=== PATIENT | female | born 1970 | race Caucasian/White ===

== ENCOUNTER 2016-10-30 09:11 | Emergency (ER) | payer SELFPAY ==
[~2016-10-30] VITALS: Ht 162.6 cm; Wt 57.0 kg
[~2016-10-30 09:11] MED LIST: CELE100C OR; IBUP400; PRED20 PO; ROBA750T3 PO
[2016-10-30 09:24] VITALS: BP 121/86; PULSE 96; RESP 16; TEMP 98.4; O2SAT 98
[2016-10-30] MEDS ORDERED: ACETAMINOPHEN/HYDROcodone 325 MG/5 MG TAB PO ONE (10:30)
[2016-10-30] MEDS ORDERED: IBUP-232 PO (11:30)
--- NOTE | 2016-10-30 11:30 | PD ---
HPI Chief Complaint: Fall Time Seen by Provider: 10:08 Travel History International Travel<30 days: No Contact w/Intl Traveler<30days: No Traveled to known affect area: No History of Present Illness HPI 45-year-old female came to the emergency room with history of fall from a ladder from about 8 feet high yesterday. Patient says she awkwardly landed on her right foot and then lost her balance and landed on her left shoulder. Didn' t come to the emergency room then and took some ibuprofen at home. Her last dose of ibuprofen was last night. However this morning when she woke up she was in significant pain in her ankle, left shoulder and her neck. Patient did not hit her head or loss consciousness. Vital signs are stable otherwise. She appears to be in distress. [facility] Past Medical History Narrative Medical List of her past medical, surgical, social and family history is reviewed from the nursing note. Diminished Hearing: No Reproductive: Yes (ENDOMETRIOSIS) Tetanus Vaccination: < 5 Years Influenza Vaccination: No ?: Not LMP: 09/26/2016 : 3 Para: 0 Miscarriage: 1 : 2 Ovarian Cysts: Yes Dilation and Curettage (D&C): Yes (2002) Past Surgical History Genitourinary Surgery: Yes (1977-"URETHRA") Gynecologic Surgery: Yes (D & C [place] 2003) Social History Alcohol Use: Yes (Few times a week) Tobacco Use: Yes (1 PPD) Substance Use: No Allergies-Medications (Allergen,Severity, Reaction): Coded Allergies: No Known Allergies (Verified , 10/30/16) Comments No known drug allergies. Reported Meds & Prescriptions Reported Meds & Active Scripts Active Ibuprofen 600 Mg Tab 600 Mg PO Q6H PRN Narrative Medication List of his home medications reviewed from the nursing note. Review of Systems Except as stated in HPI: all other systems reviewed are Neg Physical Exam Narrative GENERAL: Awake, alert, moderate distress, anxious SKIN: Focused skin assessment warm/dry. HEAD: Atraumatic. Normocephalic. EYES: Pupils equal and round. No scleral icterus. No injection or drainage. ENT: No nasal bleeding or discharge. Mucous membranes pink and moist. NECK: Trachea midline. No JVD. CARDIOVASCULAR: Regular rate and rhythm. No murmur appreciated. RESPIRATORY: No accessory muscle use. Clear to auscultation. Breath sounds equal bilaterally. GASTROINTESTINAL: Abdomen soft, non-tender, nondistended. Hepatic and splenic margins not palpable. MUSCULOSKELETAL: No obvious deformities. No clubbing. No cyanosis. No edema. Tenderness over the lateral malleolus of the right ankle. Tenderness over the ankle, the entire foot and also the knee. Tenderness over the left shoulder. Good range of motion however. NEUROLOGICAL: Awake and alert. No obvious cranial nerve deficits. Motor grossly within normal limits. Normal speech. PSYCHIATRIC: Appropriate mood and affect; insight and judgment normal. Data Data Last Documented VS Vital Signs Date Time Temp Pulse Resp B/P Pulse Ox O2 Delivery O2 Flow Rate FiO2 10/30/16 12:23 126/84 98 10/30/16 09:24 98.4 96 16 Orders Foot, Complete ([id number]) (10/30/16 ) Ankle, Complete (Evb8orw) (10/30/16 ) Knee, Complete (4vws) (10/30/16 ) Shoulder, Complete (>2vws) (10/30/16 ) Spine, Cervical Compl([id number]) (10/30/16 ) Acetamin-Hydrocod 325-5 Mg ([place] 5-325 (10/30/16 10:30) ^ Eder Bandage (10/30/16 12:01) MDM Medical Decision Making Medical Screen Exam Complete: Yes Emergency Medical Condition: Yes Medical Record Reviewed: Yes Differential Diagnosis Ankle fracture, shoulder fracture, sprain Narrative Course 11:28 AM awaiting for the x-rays to be read. Patient was medicated for pain. I looked at the x-rays myself and I did not see any acute injuries. Patient eventually will be discharged home. Procedures EKG Prior to Arrival: No Diagnosis Primary Impression: Fall from ladder Qualified Code: W11.XXXA - Fall from ladder, initial encounter Additional Impressions: Ankle strain Qualified Code: S96.911A - Ankle strain, right, initial encounter Shoulder strain Qualified Code: S46.912A - Shoulder strain, left, initial encounter Referrals: Primary Care Physician Additional Instructions: Keep the ankle wrapped in Eder wrap. Keep the leg elevated above the heart level. Apply ice compress. Take Motrin/ibuprofen/Advil for the pain. Follow- up with your primary care. Return to the ER if the condition worsens or any other new concerns. Med/Other Pt SpecificInfo: Prescription(s) given Scripts Ibuprofen 600 Mg [id number] Mg PO Q6H PRN (Pain/Inflammation) #40 TAB Ref 0 Prov:Tyler Maguire MD 10/30/16 Disposition: 01 DISCHARGE HOME Condition: Stable Tyler Maguire MD Oct 30, 2016 11:30
--- NOTE | 2016-10-30 11:45 | RADRPT ---
EXAM DATE/TIME: 10/30/2016 10:38 [facility] COMPARISON: No previous studies available for comparison. INDICATIONS : Right ankle pain post fall from ladder yesterday. MEDICAL HISTORY : Endometriosis. Ovarian cyst. Smoker. SURGICAL HISTORY : D&C. Urethral surgery. Left 5th finger. ENCOUNTER: Initial ACUITY: 1 day PAIN SCORE: 9/10 LOCATION: Right lateral ankle FINDINGS: Three view exam was performed of the right ankle. The bony structures are in normal alignment. No e vidence of fracture, dislocation, or soft tissue swelling. The ankle mortise is intact. No radiopaq ue foreign bodies are seen. Bony mineralization is normal. CONCLUSION: No acute disease. Raymundo Farrell MD on October 30, 2016 at 11:42 Board Certified Radiologist. This report was verified electronically.
--- NOTE | 2016-10-30 11:46 | RADRPT ---
EXAM DATE/TIME: 10/30/2016 10:40 [facility] COMPARISON: No previous studies available for comparison. INDICATIONS : Right foot pain post fall from ladder yesterday. MEDICAL HISTORY : Endometroisis. Ovarian cyst. Smoker. SURGICAL HISTORY : D & C. Urethral surgery. Left 5th finger. ENCOUNTER: Initial ACUITY: 1 day PAIN SCORE: 9/10 LOCATION: Right lateral foot. FINDINGS: Three view examination of the right foot demonstrates no soft tissue swelling, dislocation, or fractu re. The tarsal bones appear intact. The interphalangeal and metatarsophalangeal joints are intact. The calcaneus is intact. Bony mineralization is normal. CONCLUSION: No acute disease. Raymundo Farrell MD on October 30, 2016 at 11:43 Board Certified Radiologist. This report was verified electronically.
--- NOTE | 2016-10-30 11:46 | RADRPT ---
EXAM DATE/TIME: 10/30/2016 10:44 [facility] COMPARISON: No previous studies available for comparison. INDICATIONS : Right medial & lateral knee pain post fall from ladder yesterday. MEDICAL HISTORY : Endometriosis. Ovarian cyst. Smoker, SURGICAL HISTORY : D&C. Urethral surgery. Left 5th digit. ENCOUNTER: Initial ACUITY: 1 day PAIN SCORE: 9/10 LOCATION: Right knee. FINDINGS: Four view examination of the right knee demonstrates no evidence of fracture or dislocation. Bony mi neralization is normal. The articular surfaces are intact. The suprapatellar soft tissues have a no rmal configuration. CONCLUSION: No acute disease. Raymundo Farrell MD on October 30, 2016 at 11:43 Board Certified Radiologist. This report was verified electronically.
--- NOTE | 2016-10-30 11:48 | RADRPT ---
EXAM DATE/TIME: 10/30/2016 10:46 [facility] COMPARISON: No previous studies available for comparison. INDICATIONS : Neck pain post fall from ladder yesterday. MEDICAL HISTORY : Endometriosis. Ovarian cyst. Smoker. SURGICAL HISTORY : D&C. Urethreal surgery. Left 5th finger. ENCOUNTER: Initial ACUITY: 1 day PAIN SCORE: 9/10 LOCATION: cervical spine FINDINGS: Straightening and slight reversal of normal lordosis is noted through the lower cervical segments. Cr aniocervical junction and upper cervical vertebral bodies are satisfactory aligned. There is no signi ficant listhesis.Moderate degenerative disease with marginal spondylosis is noted at C5-6 and C6-7. Vertebral body height is well-maintained. There is no evidence of compression deformity. There is no significant foraminal encroachment. Posterior elements are intact. CONCLUSION: Moderate degenerative disc disease with spondylosis at C5-6 and C6-7. No evidence of traumatic bony or soft tissue injury. Cervical spine is otherwise unremarkable. Raymundo Farrell MD on October 30, 2016 at 11:44 Board Certified Radiologist. This report was verified electronically.
--- NOTE | 2016-10-30 11:49 | RADRPT ---
EXAM DATE/TIME: 10/30/2016 10:54 [facility] COMPARISON: No previous studies available for comparison. INDICATIONS : Left shoulder pain post fall from ladder yesterday. MEDICAL HISTORY : Endometriosis. Ovarian cyst.Smoker. SURGICAL HISTORY : D&C. Urethral surgery. Left 5th finger. ENCOUNTER: Initial ACUITY: 1 day PAIN SCORE: 9/10 LOCATION: Left shoulder FINDINGS: Multiple view examination of the left shoulder demonstrates no evidence of fracture or dislocation. The glenohumeral and acromioclavicular joints are maintained. There is normal range of motion betwee n internal and external rotation. Bony mineralization is normal. CONCLUSION: No acute disease. Raymundo Farrell MD on October 30, 2016 at 11:46 Board Certified Radiologist. This report was verified electronically.
[2016-10-30 12:23] VITALS: BP 126/84
== END 2016-10-30 12:24 | disposition home or self-care (01) ==
LOC: PHED 09:11
DX: S96.911A Strain of unspecified muscle and tendon at ankle and foot level, right foot, initial encounter (principal); S46.912A Strain of unspecified muscle, fascia and tendon at shoulder and upper arm level, left arm, initial encounter; W11.XXXA Fall on and from ladder, initial encounter
CPT/HCPCS: 72050; 73030; 73564; 73610; 73630; 99284